=== PATIENT | female | born 1995 ===

== ENCOUNTER 2018-08-12 05:33 | Emergency (ER) | payer OTHER ==
[2018-08-12] MEDS ORDERED: Ibuprofen TAB* 600 MG PO ONE (06:02)
--- NOTE | 2018-08-12 06:06 | ED ---
Complex/Multi-Sys Presentation - HPI Summary HPI Summary: Patient is a 22 y/o F presenting to ED with complaints of sore throat, DICKSON, body aches, decreased appetite, swollen eyelids onsetting 08/10/18. She denies known fever, on vitals temp is 98.6 F. Patient states she feels hot. Abdominal pain is denied but she notes some nausea. On triage, pain is rated 8/10, nothing is noted to aggravate/alleviate Sx. Home medications and allergies are reviewed. - History Of Current Complaint Chief Complaint: EDFluSymptoms Time Seen by Provider: 08/12/18 05:55 Hx Obtained From: Patient Onset/Duration: Lasting Days - last night, Still Present Timing: Constant, Days - last night Severity Currently: Severe - 8/10 Location: Pain At: - head, diffuse body aches Character: Typical Headache Aggravating Factor(s): nothing Alleviating Factor(s): nothing Associated Signs And Symptoms: Positive: Headache, Nausea, Other - decreased appetite, sore throat, body aches, swollen eyelids are reported, fever and abdominal pain is denied - Allergies/Home Medications Allergies/Adverse Reactions: Allergies Allergy/AdvReac Type Severity Reaction Status Date / Time No Known Allergies Allergy Verified 08/12/18 05:38 Home Medications: Home Medications NK [No Home Medications Reported] 08/12/18 [History Confirmed 08/12/18] PMH/Surg Hx/FS Hx/Imm Hx Sensory History: Denies: Hx Legally Blind, Hx Deafness Opthamlomology History: Denies: Hx Legally Blind EENT History: Denies: Hx Deafness Infectious Disease History: No Infectious Disease History: Denies: Traveled Outside the [place] in Last 30 Days - Family History Known Family History: Negative: Blood Disorder - Social History Alcohol Use: Occasionally Substance Use Type: Reports: Marijuana Smoking Status (MU): Never Smoked Tobacco Review of Systems Constitutional: Other - POSITIVE - BODY ACHES Negative: Fever Positive: Sore Throat Gastrointestinal: Other - POSITIVE - DECREASED APPETITES Positive: Nausea. Negative: Abdominal Pain Positive: Edema - eyelids All Other Systems Reviewed And Are Negative: Yes Physical Exam - Summary Physical Exam Summary: VITAL SIGNS: Reviewed. GENERAL: Patient is a well-developed and nourished female who is lying comfortable in the stretcher. Patient is not in any acute respiratory distress. HEAD AND FACE: No signs of trauma. No ecchymosis, hematomas or skull depressions. No sinus tenderness. EYES: PERRLA, EOMI x 2, No injected conjunctiva, no nystagmus. EARS: Hearing grossly intact. Ear canals and tympanic membranes are within normal limits. MOUTH: Oropharynx within normal limits. NECK: Supple, trachea is midline, no JVD, no carotid bruit, no c-spine tenderness, neck with full ROM. Bilateral cervical adenopathy is noted. CHEST: Symmetric, no tenderness at palpation LUNGS: Clear to auscultation bilaterally. No wheezing or crackles. CVS: Regular rate and rhythm, S1 and S2 present, no murmurs or gallops appreciated. ABDOMEN: Soft, non-tender. No signs of distention. No rebound no guarding, and no masses palpated. Bowel sounds are normal. EXTREMITIES: FROM in all major joints, no edema, no cyanosis or clubbing. NEURO: Alert and oriented x 3. No acute neurological deficits. Speech is normal and follows commands. SKIN: Dry and warm Triage Information Reviewed: Yes Vital Signs On Initial Exam: Initial Vitals Temp Pulse Resp BP Pulse Ox 98.6 F 124 20 112/67 96 08/12/18 05:35 08/12/18 05:35 08/12/18 05:35 08/12/18 05:35 08/12/18 05:35 Vital Signs Reviewed: Yes Diagnostics - Vital Signs Vital Signs Temp Pulse Resp BP Pulse Ox 08/12/18 05:35 98.6 F 124 20 112/67 96 - Laboratory Lab Statement: Any lab studies that have been ordered have been reviewed, and results considered in the medical decision making process. Complex Multi-Symp Course/Dx Course Of Treatment: Patient is a 22 y/o F presenting to ED with complaints of sore throat, DICKSON, body aches, decreased appetite, swollen eyelids onsetting . She denies known fever, on vitals temp is 98.6 F. Patient states she feels hot. Abdominal pain is denied but she notes some nausea. On physical exam, Bilateral cervical adenopathy is noted. During ED course, patient received Motrin 600 mg PO. Monoscreen, group A strep rapid were negative. Patient is signed out to Dr. Young pending results of flu test. - Diagnoses Provider Diagnoses: Viral syndrome Discharge - Sign-Out/Discharge Documenting (check all that apply): Sign-Out Patient Signing out patient TO: Edwin Hector Patient Received Moderate/Deep Sedation with Procedure: No - NO PROCEDURES DONE - Discharge Plan Condition: Stable Disposition: HOME Referrals: Care [facility] [Outside] - 2 Days [facility] [Provider Group] - 2 Days Additional Instructions: RETURN TO EMERGENCY DEPARTMENT FOR ANY NEW OR WORSENING SYMPTOMS. FOLLOW UP WITH PRIMARY CARE PHYSICIAN IN 1-2 DAYS. - Attestation Statements Document Initiated by Scribe: Yes Documenting Scribe: LILY SOTOMAYOR Provider For Whom Scribe is Documenting (Include Credential): AMY SEGURA MD Scribe Attestation: ILILY , scribed for AMY SEGURA MD on 08/12/18 at 0653. Status of Scribe Document: Ready
[2018-08-12 06:57] LABS: Influenza A Molecular NEGATIVE (Negative); Influenza B Molecular NEGATIVE (Negative)
--- NOTE | 2018-08-12 07:12 | ED ---
Progress - Progress Note Progress Note: Receiving sign out from Dr. Mason, pending flu results. Flu results are negative. Pt will be discharged with a final dx of viral syndrome. Course/Dx - Diagnoses Provider Diagnoses: Viral syndrome Discharge - Sign-Out/Discharge Documenting (check all that apply): Patient Departure - Discharge, Receiving Sign-Out Receiving patient FROM: Domingo Mason Patient Received Moderate/Deep Sedation with Procedure: No - Discharge Plan Condition: Stable Disposition: HOME Patient Education Materials: Viral Syndrome (ED) Forms: *School Release Referrals: [facility] [Provider Group] - 2 Days Care [facility] [Outside] - 2 Days Additional Instructions: RETURN TO EMERGENCY DEPARTMENT FOR ANY NEW OR WORSENING SYMPTOMS. FOLLOW UP WITH PRIMARY CARE PHYSICIAN IN 1-2 DAYS. - Attestation Statements Document Initiated by Scribe: Yes Documenting Scribe: Khloe Reardon Provider For Whom Scribe is Documenting (Include Credential): Edwin Young MD Scribe Attestation: Khloe Baumann, scribed for Edwin Young MD on 08/12/18 at 0711. Status of Scribe Document: Ready
[2018-08-12 07:15] VITALS: BP 101/63
== END 2018-08-12 07:14 | disposition home or self-care (01) ==
LOC: ED 05:33
DX: B34.9 Viral infection, unspecified (principal); J02.9 Acute pharyngitis, unspecified; R11.0 Nausea; R60.9 Edema, unspecified; R51 Headache
CPT/HCPCS: 36415; 86308; 87651; 99282; A9270-GY

== ENCOUNTER 2018-08-13 04:48 | Emergency (ER) | payer OTHER ==
[2018-08-13] MEDS ORDERED: NS 0.9% 1000 ML** 1,000 ML IV.FLUID IV ONE (05:05)
[2018-08-13] MEDS ORDERED: Ketorolac INJ* 30 MG/ML 1 ML VIAL IV PUSH ONE (05:06)
[2018-08-13] MEDS ORDERED: Acetaminophen TAB* 325 MG PO ONE (05:06)
[2018-08-13] MEDS ORDERED: Lidocaine 2% EPI 1:200000 MPF*10-20 ML VIAL ONE (05:34)
[2018-08-13 05:44] LABS: ABS Basophils 0.1 10^3/ul (0-0.2); ABS Eosinophils 0 10^3/ul (0-0.6); ABS Lymphocytes 0.6 10^3/ul (1.0-4.8); ABS Neutrophils 15.7 10^3/ul (1.5-7.7); ABS Nucleated RBC 0 10^3/ul; Eosinophil % 0 %; Hematocrit 35 % (35-47); Hemoglobin 11.2 g/dl (12.0-16.0); Lymphocyte % 3.3 %; Mean Corpuscular HGB Conc 32 g/dl (31-36); Mean Corpuscular Hemoglobin 28 pg (27-31); Mean Corpuscular Volume 87 fL (80-97); Mean Platelet Volume 8.5 fL (7.4-10.4); Nucleated Red Blood Cells % 0; Platelet Count 281 10^3/ul (150-450); Red Blood Count 3.99 10^6/ul (4.00-5.40); Red Cell Distribution Width 15 % (10.5-15); White Blood Count 17.4 10^3/ul (3.5-10.8)
--- NOTE | 2018-08-13 05:45 | ED ---
Complex/Multi-Sys Presentation - HPI Summary HPI Summary: Patient is a 22 y/o F presenting to ED with complaints of fever, neck pain, joint pain, swollen eyelids, back pain, sore throat, DICKSON and bilateral neck swelling. She was seen in [facility] yesterday for similar complaints, patient was negative for Influenza A, B, Group A rapid strep, and monoscreen. However, she notes neck pain, fever and bilateral neck swelling are new onset Sx since yesterday's visit. Patient states that she took ibuprofen, Advil yesterday, she is unsure of the amount. Last took ibuprofen at 1700 yesterday. PMHx of heart murmur. On triage, pain is rated 10/10, nothing is noted to aggravate/alleviate Sx. Home medications and allergies are reviewed. - History Of Current Complaint Chief Complaint: EDFluSymptoms Time Seen by Provider: 08/13/18 05:05 Hx Obtained From: Patient Onset/Duration: Lasting Days - neck pain, bilateral neck swelling onset since yesterday's visit, Still Present, Worse Since - yesterday Timing: Constant, Days - neck pain, bilateral neck swelling onset since yesterday's visit Severity Currently: Severe - 10/10 Severity Initially: Severe Location: Pain At: - Head, diffuse body aches, neck, back Character: Typical Headache Aggravating Factor(s): nothing Alleviating Factor(s): nothing Associated Signs And Symptoms: Positive: Headache, Edema - swelling of eyelids, swelling of neck bilaterally, Back Pain, Fever, Other - neck pain, joint pain, sore throat - Allergies/Home Medications Allergies/Adverse Reactions: Allergies Allergy/AdvReac Type Severity Reaction Status Date / Time No Known Allergies Allergy Verified 08/12/18 05:38 PMH/Surg Hx/FS Hx/Imm Hx Sensory History: Denies: Hx Legally Blind, Hx Deafness Opthamlomology History: Denies: Hx Legally Blind EENT History: Denies: Hx Deafness Infectious Disease History: No Infectious Disease History: Denies: Traveled Outside the [place] in Last 30 Days - Family History Known Family History: Negative: Blood Disorder - Social History Alcohol Use: Occasionally Substance Use Type: Reports: Marijuana Smoking Status (MU): Never Smoked Tobacco Review of Systems Positive: Fever Positive: Sore Throat Musculoskeletal: Other - POSITIVE - JOINT PAIN, NECK PAIN, BACK PAIN Positive: Edema - neck bilaterally, eyelids Positive: Headache All Other Systems Reviewed And Are Negative: Yes Physical Exam - Summary Physical Exam Summary: VITAL SIGNS: Reviewed. GENERAL: Patient is a well-developed and nourished male who is lying comfortable in the stretcher. Patient is not in any acute respiratory distress. HEAD AND FACE: No signs of trauma. No ecchymosis, hematomas or skull depressions. No sinus tenderness. EYES: PERRLA, EOMI x 2, No injected conjunctiva, no nystagmus. EARS: Hearing grossly intact. Ear canals and tympanic membranes are within normal limits. MOUTH: Oropharynx within normal limits. Pharyngeal hyperemia with post nasal drip is noted. NECK: Supple, trachea is midline, no JVD, no carotid bruit, no c-spine tenderness. Nuchal rigidity, upper cervical adenopathy. CHEST: Symmetric, no tenderness at palpation LUNGS: Clear to auscultation bilaterally. No wheezing or crackles. CVS: Regular rate and rhythm, S1 and S2 present, no murmurs or gallops appreciated. ABDOMEN: Soft, non-tender. No signs of distention. No rebound no guarding, and no masses palpated. Bowel sounds are normal. EXTREMITIES: FROM in all major joints, no edema, no cyanosis or clubbing. NEURO: Alert and oriented x 3. No acute neurological deficits. Speech is normal and follows commands. SKIN: Dry and warm Triage Information Reviewed: Yes Vital Signs On Initial Exam: Initial Vitals Temp Pulse Resp BP Pulse Ox 102.6 F 150 18 98/83 96 08/13/18 04:50 08/13/18 04:50 08/13/18 04:50 08/13/18 04:50 08/13/18 04:50 Vital Signs Reviewed: Yes Procedures - Procedure Summary Procedure Summary: Written consent for lumbar puncture procedure was obtained from patient. L4-L5 lumbar puncture, local lido 2% with epi was used, 4 tubes of clear fluid were collected, no complications, patient tolerated well. - Lumbar Puncture l4-l5 Position: Sitting Aseptic Technique: Local Anesthesia, Lidocaine Anesthesia Used: 2.0% Lido - with epi Spinal Needle Used: 20 Gauge Lumbar Puncture Note: Written consent for lumbar puncture procedure was obtained from patient. L4-L5 lumbar puncture, local lido 2% with epi was used, 4 tubes of clear fluid were collected, no complications, patient tolerated well. Diagnostics - Vital Signs Vital Signs Temp Pulse Resp BP Pulse Ox 08/13/18 04:59 122 95 08/13/18 04:57 122 100/49 98 08/13/18 04:50 102.6 F 150 18 98/83 96 - Laboratory Result Diagrams: 08/13/18 05:30 08/13/18 05:30 Lab Statement: Any lab studies that have been ordered have been reviewed, and results considered in the medical decision making process. - Radiology CXR Radiology Interpretation Completed By: ED Physician Summary of Radiographic Findings: no acute process, pending official report Re-Evaluation - Re-Evaluation First Eval Re-Evaluation Time: 05:10 Comment: Need for spinal tap had been discussed with patient, she was initially relucatant and stated that she need to think about it. After further discussion about the potential benefits of the procedure and possible consequences of refusal, patient provided written consent for lumbar puncture. Second Eval Re-Evaluation Time: 05:39 Comment: Lumbar puncture done, patient tolerated well, no complications. Third Eval Re-Evaluation Time: 06:40 Comment: Patient will be discharged to home and follow up with PCP. She is agreeable with this. Complex Multi-Symp Course/Dx Course Of Treatment: Patient is a 22 y/o F presenting to ED with complaints of fever, neck pain, joint pain, swollen eyelids, back pain, sore throat, DICKSON and bilateral neck swelling. She was seen in [facility] yesterday for similar complaints , patient was negative for Influenza A, B, Group A rapid strep, and monoscreen. However, she notes neck pain, fever and bilateral neck swelling are new onset Sx since yesterday's visit. Patient states that she took ibuprofen, Advil yesterday, she is unsure of the amount. Last took ibuprofen at 1700 yesterday. PMHx of heart murmur. On physical exam, nuchal rigidity, upper cervical adenopathy, and pharyngeal hyperemia with post nasal drip are noted. Need for spinal tap had been discussed with patient, she was initially relucatant and stated that she need to think about it. After further discussion about the potential benefits of the procedure and possible consequences of refusal, patient provided written consent for lumbar puncture. Written consent for lumbar puncture procedure was obtained from patient. L4-L5 lumbar puncture, local lido 2% with epi was used, 4 tubes of clear fluid were collected, no complications, patient tolerated well. CXR showed no acute process, pending official report. Labs showed WBC 17.4, RBC 3.99, Hgb 11.2, absolute neuts 15.7 , absolute lymphs 0.6, absolute monos 1, INR 1.22, sodium 131, carbon dioxide 21 , glucose 114, lactic acid 0.8, CRP 115.47, influenza A, B negative, group a strep rapid negative. CSF glucose was 79, CSF total protein 18, WBC 1, RBC 16, appearance clear, volume 3. During ED course, patient received Tylenol 975 mg, toradol 15 mg IV, joaquin-medrol 125 mg IV, Zosyn 100 mls @ 200 msl/hr IVPB, and fluids. Patient will be discharged to home and follow up with PCP. She is agreeable with this. - Diagnoses Provider Diagnoses: Sinusitis, Pharyngitis Discharge - Sign-Out/Discharge Documenting (check all that apply): Patient Departure - discharge Patient Received Moderate/Deep Sedation with Procedure: No - Discharge Plan Condition: Stable Disposition: HOME Prescriptions: Amoxicillin/Clavulanate TAB* [Augmentin TAB 875*] 875 mg PO BID #20 tab Ibuprofen TAB* [Motrin TAB* 800 MG] 800 mg PO Q6H PRN #30 tab PRN Reason: Fever/Pain Patient Education Materials: Pharyngitis (ED), Sinusitis (ED) Forms: *School Release Referrals: [facility] [Provider Group] - 2 Days Care [facility] [Outside] - 2 Days Additional Instructions: RETURN TO THE EMERGENCY DEPARTMENT FOR CHANGING OR WORSENING SYMPTOMS. FOLLOW UP WITH PRIMARY CARE PHYSICIAN IN 1-2 DAYS. - Attestation Statements Document Initiated by Scribe: Yes Documenting Scribe: LILY SOTOMAYOR Provider For Whom Reina is Documenting (Include Credential): AMY SEGURA MD Scribe Attestation: LILY Baumann , scribed for AMY SEGURA MD on 08/13/18 at 0653. Status of Scribe Document: Ready
[2018-08-13 06:00] LABS: Body Fluid Source Cerebral Spinal
[2018-08-13 06:01] LABS: Activated Partial Thrombo Time 29.7 seconds (26.0-36.3); INR 1.22 (0.77-1.02)
[2018-08-13] MEDS ORDERED: Piperacillin/Tazobac ADVAN(*) 3.375 GM in NS 0.9% 100 ML* 100 ML IVPB ONE (06:01)
[2018-08-13 06:02] LABS: Albumin 3.9 g/dL (3.2-5.2); Albumin/Globulin Ratio 1.1 (1-3); BUN/Creatinine Ratio 9.9 (8-20); C Reactive Protein 115.47 mg/L (<8.01); EGFR African American 109.1 (>60); EGFR Non-African American 90.1 (>60); Globulin 3.5 g/dL (2-4); Potassium 3.9 mmol/L (3.5-5.0); Total Bilirubin 0.4 mg/dL (0.2-1.0); Total Protein 7.4 g/dL (6.4-8.9)
[2018-08-13 06:11] LABS: Influenza A Molecular NEGATIVE (Negative); Influenza B Molecular NEGATIVE (Negative)
[2018-08-13] MEDS ORDERED: methylPREDNISolone 125 MG* 2 ML VIAL IV ONE (06:11)
[2018-08-13 06:16] LABS: CSF Glucose 79 mg/dL (40-70)
[2018-08-13 07:12] VITALS: BP 107/53
[2018-08-13 07:43] LABS: Body Fluid Mono 1 %
[2018-08-14 15:38] LABS: HSV 1 PCR, CSF Negative (Negative); HSV 2 PCR, CSF Negative (Negative)
[2018-08-15 01:19] LABS: B. garinii/B. afzellii PCR Negative (Negative); Lyme Disease Source csf
== END 2018-08-13 07:11 | disposition home or self-care (01) ==
LOC: ED 04:48
DX: J32.9 Chronic sinusitis, unspecified (principal); J02.9 Acute pharyngitis, unspecified; R50.9 Fever, unspecified; R51 Headache; H02.849 Edema of unspecified eye, unspecified eyelid; R22.1 Localized swelling, mass and lump, neck; M54.9 Dorsalgia, unspecified; M25.50 Pain in unspecified joint
CPT/HCPCS: 36415; 62270; 71045; 80053; 82945; 83605; 84157; 85025; 85610; 85730; 86140; 87040; 87070; 87205; 87476; 87529; 87651; 87798; 89051; 96365; 96375; 99284; A9270-GY; J1885; J2543; J2930